=== PATIENT | female | born 2000 | race Caucasian/White ===

== ENCOUNTER 2020-06-08 09:14 | Emergency (ER) | payer BC, SELFPAY ==
[2020-06-08 09:25] VITALS: BP 114/60; PULSE 76; RESP 20; TEMP 36.7; O2SAT 100
--- NOTE | 2020-06-08 09:50 | ED.EYEPROB ---
HPI - Eye Problem General Chief complaint: Eye Problems Stated complaint: Swollen Eye Time Seen by Provider: 06/08/20 09:50 Source: patient and RN notes reviewed Mode of arrival: ambulatory Limitations: no limitations History of Present Illness HPI Narrative: 20-year-old female, 31 weeks , presents with concern for swollen left eyelid, skin redness around the eye. She denies vision changes, eye pain, crusty drainage, upper respiratory infection symptoms. Reports she has had similar issues with the eye in the past. chief complaint: other (Eyelid swelling) Related Data Home Medications Medication Instructions Recorded Confirmed multivit [id number] 1-dha cap PO 06/08/20 [PNV-DHA] ondansetron HCl 06/08/20 Allergies Allergy/AdvReac Type Severity Reaction Status Date / Time No Known Allergies Allergy Verified 06/08/20 09:45 Review of Systems Review of Systems: Narrative: CONSTITUTIONAL: Denies malaise, chills, sweats, or fever. EYES: Denies visual changes, redness, or discharge. Reports left eyelid swelling, skin excoriation around the eye ENT: Denies rhinorrhea, congestion, sinus pain, otalgia or sore throat. CARDIOVASCULAR: Denies chest pain, palpitations RESPIRATORY: Denies cough or dyspnea. SKIN: Reports irritated skin near the left eye All systems reviewed & are unremarkable except as noted in HPI and below PMFSH Comments At time of signature, agree with nursing past medical, surgical, social and family history. There is no relevant family history pertinent to the presenting complaint Exam Narrative: Exam Narrative: GENERAL: Well-appearing, well-nourished, and in no acute distress. HEAD: Normocephalic, atraumatic. EYES: PERRLA, conjunctivae clear, and EOMI. No nystagmus. Left lower eyelid swelling with mild excoriation to the skin of the outer corner of the eye, sclera and conjunctive is not injected ENT: Mucous membranes moist. NECK: Supple. CHEST: No respiratory distress. Speaks in full sentences. HEART: Regular rate and rhythm. SKIN: Warm, dry, no rash. NEURO: Alert and oriented x3. PSYCH: Normal mood and affect Course Course Emergency Course: Patient is aware of diagnosis, understands and agrees to treatment plan. Anticipatory guidance given. Patient agrees to follow-up as directed and is aware of reasons to seek care at the emergency department. Portions of this record may have been created with voice recognition software Vital Signs Vital signs: Vital Signs Temperature 98.1 F 06/08/20 09:25 Pulse Rate 76 06/08/20 09:25 Respiratory Rate 20 06/08/20 09:25 Blood Pressure 114/60 06/08/20 09:25 Pulse Oximetry 100 06/08/20 09:25 Temperature 98.1 F 06/08/20 09:25 Pulse Rate 76 06/08/20 09:25 Respiratory Rate 20 06/08/20 09:25 Blood Pressure 114/60 06/08/20 09:25 Pulse Oximetry 100 06/08/20 09:25 Reviewed. MDM - Eye Problem MDM Narrative Medical decision making narrative: Consideration of the following conditions may be warranted for the presenting problem, they are not final diagnoses: Bacterial conjunctivitis, allergic conjunctivitis, viral conjunctivitis, foreign body, blepharitis, chalazion, hordeolum, corneal abrasion. Exam findings show no acute concerns or changes; patient is non-toxic appearing and is in no distress. Patient is appropriate for outpatient treatment and follow-up. Critical Care Time Critical Care Time Critical Care Time: No Discharge Plan Discharge Clinical Impression: Blepharitis Qualifiers: Blepharitis type: unspecified type Laterality: left Eyelid: lower Qualified Code(s): H01.005 - Unspecified blepharitis left lower eyelid Patient Disposition: Home, Self-Care Condition: Stable Instructions: Blepharitis (ED) Additional Instructions: Use a warm or cool washcloth on your eye for comfort Use eyedrops as directed Practice good handwashing Avoid wearing eye make-up, use artificial tears as needed
== END 2020-06-08 10:05 | disposition home or self-care (01) ==
PROVIDERS: Emergency Provider Nurse Practitioner
DX: O90.89 Other complications of the puerperium, not elsewhere classified (principal); H01.005 Unspecified blepharitis left lower eyelid
CPT/HCPCS: 99213; G0463

== ENCOUNTER 2023-10-01 13:44 | Emergency (ER) | payer BC, SELFPAY ==
[2023-10-01 14:00] VITALS: BP 109/60; PULSE 69; RESP 16; TEMP 36.7; O2SAT 98
--- NOTE | 2023-10-01 14:04 | ED.EYEPROB ---
HPI - Eye Problem General Chief complaint: Eye Problems Stated complaint: Left Eye Problem Source: patient, RN notes reviewed and old records reviewed Mode of arrival: ambulatory Limitations: no limitations History of Present Illness HPI Narrative: 23-year-old female presents to urgent care with complaint of left eye redness and irritation for 1-2 days. Patient states this is recurring issue patient uses Polytrim eyedrops epistasis time is not helping. Patient does not have a current eye doctor. Patient does not wear contacts. MD chief complaint: eye redness Onset (ago): day(s) (1-2) Related Data Home Medications Medication Instructions Recorded Confirmed Nexplanon 10/01/23 Polytrim 10/01/23 Allergies Allergy/AdvReac Type Severity Reaction Status Date / Time No Known Allergies Allergy Verified 10/01/23 13:53 Review of Systems Constitutional: Constitutional: Reports no additional constitutional complaints Eyes: Eyes: Reports as per HPI, Denies blurry vision, Denies exophthalmos, Denies change in vision, Denies decreased night vision, Denies diplopia, Reports irritation, Denies loss of vision and Denies eye pain ENT: Reports system reviewed and no additional complaints, except as documented Cardiovascular: Cardiovascular: Reports no additional cardiovascular complaints Respiratory: Respiratory: Reports no additional respiratory complaints Neurologic: Reports system reviewed and no additional complaints, except as documented PMFSH Comments At the time of my signature, I reviewed and agree with the nursing past medical, surgical, social, and family history. There is no relevant family history pertinent to the patient complaint. Exam Const: General: cooperative, healthy appearing, no acute distress and well nourished Nutritional Appearance: well nourished Orientation/consciousness: patient oriented x3 Limitations: no limitations HENMT: Head: normal to inspection and normocephalic Ears: external ears normal, TM's normal bilaterally, mastoids normal and Abnormal EAC present Face/Nose/Sinus: normal facial exam Face and sinus: normal facial exam Mouth: Yes Normal oral and palatal mucosa present, Yes oropharynx normal and Yes moist mucous membranes Throat: posterior oropharynx normal, tonsils normal, uvula midline and no uvular edema Eyes: Visual Overton: normal visual overton by confrontation Alignment and Position: alignment normal Periorbital: periorbital findings normal Eyelids: eyelids normal Conjunctivae: normal conjunctivae ( redness) Sclera: sclerae normal Cornea: corneas normal Pupils: Equal, round and reactive pupils present Resp: Effort & Inspection: normal respiratory effort, able to speak in complete sentences, no audible wheezes, no cough, no respiratory distress and no retractions Auscultation: clear to auscultation bilaterally, no crackles, no rales, no rhonchi and no wheezes Cardio: Rate: regular rate Rhythm: regular rhythm Skin: General skin exam: normal color and no rashes or lesions noted Neuro: General: patient oriented x3 Cranial nerves: Yes Equal, round and reactive pupils present Psych: Appearance: grossly normal Course Course Emergency Course: Some parts of this dictation were generated by voice recognition software and may contain typographical and/or grammatical inaccuracies. Level of Care: Express Care Visit Vital Signs Vital signs: Vital Signs Temperature 98.1 F 10/01/23 14:00 Pulse Rate 69 10/01/23 14:00 Respiratory Rate 16 10/01/23 14:00 Blood Pressure 109/60 10/01/23 14:00 Pulse Oximetry 98 10/01/23 14:00 Oxygen Delivery Room Air 10/01/23 14:00 Temperature 98.1 F 10/01/23 14:00 Pulse Rate 69 10/01/23 14:00 Respiratory Rate 16 10/01/23 14:00 Blood Pressure 109/60 10/01/23 14:00 Pulse Oximetry 98 10/01/23 14:00 Oxygen Delivery Room Air 10/01/23 14:00 Reviewed MDM - Eye Problem MDM Narrative Medical de
== END 2023-10-01 14:13 | disposition home or self-care (01) ==
PROVIDERS: Emergency Provider Registered Nurse
DX: H10.9 Unspecified conjunctivitis (principal)
CPT/HCPCS: 99203; G0463

== ENCOUNTER 2024-10-06 15:45 | Emergency (ER) | payer BC, SELFPAY ==
--- NOTE | ~2024-10-06 | CT_ITS ---
EXAMINATION: CT brain wo con DATE: 10/06/2024 16:04 INDICATION: Headache TECHNIQUE: Computed tomography (CT) of the head was performed without intravenous contrast. Sagittal and coronal reconstructions were performed. The mA was adjusted according to patient size. Iterative reconstruction technique was employed. The dose-length product was 605.33 mGy-cm. COMPARISON: None FINDINGS: No acute intracranial hemorrhage, acute infarction or abnormal extra axial fluid collection. Ventricl es are normal and symmetric. No mass/mass effect. Prominent mucosal thickening in the bilateral maxil ward and anterior right ethmoid sinuses and with complete opacification of the right frontal sinus. M ild mucosal thickening the left frontoethmoidal recess. The orbits and mastoid air cells are normal. IMPRESSION: 1. No acute intracranial process. 2. Prominent sinus disease including complete opacification of the right frontal sinus. Reviewed, dictated and finalized at location A. [facility] [employer] IMPRESSION: 1. No acute intracranial process. 2. Prominent sinus disease including complete opacification of the right fronta l sinus.
[2024-10-06 15:47] VITALS: BP 134/78; PULSE 67; RESP 16; O2SAT 100
--- NOTE | 2024-10-06 15:47 | ED.HA ---
HPI - Headache General Chief Complaint: Headache Stated Complaint: headache after bending over Time Seen by Provider: 10/06/24 15:47 Focused HPI: This is a 24 year old female that presents to the ER for a headache. Reports it started after bending over to grab something at work. She has never had a headache like this before. Reports the pain is 10/10. Reports on the right sided headache. Reports some blurry vision. Reports nausea. Reports her arms are tingling and she feels lightheaded. Denies vomiting. GENERAL: Well-appearing, well-nourished, and in no acute distress. HEAD: Normocephalic, atraumatic. CHEST: Clear to auscultation. ?No respiratory distress. HEART: Regular rate and rhythm.? NEURO: ?Alert and oriented x3. Patient screened in triage and initial orders placed.? ?Additional care and disposition to be based upon?diagnostic testing and treatment. Related Data Home Medications ?Medication ?Instructions ?Recorded ?Confirmed ?Last Taken ?Type Nexplanon 10/01/23 Unknown History Polytrim 10/01/23 Unknown History Allergies Allergy/AdvReac Type Severity Reaction Status Date / Time No Known Allergies Allergy Verified 10/01/23 13:53 Course Vital Signs Vital signs: Vital Signs Pulse Rate 67 10/06/24 15:47 Respiratory Rate 16 10/06/24 15:47 Blood Pressure 134/78 10/06/24 15:47 Pulse Oximetry 100 10/06/24 15:47 Oxygen Delivery Room Air 10/06/24 15:47 Pulse Rate 67 10/06/24 15:47 Respiratory Rate 16 10/06/24 15:47 Blood Pressure 134/78 10/06/24 15:47 Pulse Oximetry 100 10/06/24 15:47 Oxygen Delivery Room Air 10/06/24 15:47 MDM - Headache MDM Narrative Medical decision making narrative: Patient left after initial screening exam and initial workup and before any further evaluation or management Differential Diagnosis Differential diagnosis: Likely migraine, tension headache, subarachnoid hemorrhage, headache and sinusitis Imaging Data Radiologist's impression: ITS Impressions Head CT 10/06/24 16:06 IMPRESSION: 1. No acute intracranial process. 2. Prominent sinus disease including complete opacification of the right frontal sinus. Discharge Plan Discharge Clinical Impression: Headache Qualifiers: Headache type: unspecified Headache chronicity pattern: acute headache Intractability: intractable Qualified Code(s): R51.9 - Headache, unspecified Patient Disposition: Elopement After Seen by Prov Condition: Guarded Prognosis Patient Language: Turkish Prescriptions: No Action Nexplanon Polytrim erythromycin 5 mg/gram (0.5 %) ointment 0.5 inch EACH EYE BID 7 Days Qty: 3.5 0RF Follow-up/Referrals: PHYSICIAN,RAILROAD PASSENGER AGENT [Primary Care Provider] -
== END 2024-10-06 18:34 | disposition left against medical advice (07) ==
LOC: ANHED 18:30
PROVIDERS: Emergency Provider Physician Assistant
DX: R51.9 Headache, unspecified (principal)
CPT/HCPCS: 70450; 99284

== ENCOUNTER 2025-04-25 08:02 | Emergency (ER) | payer BC, SELFPAY ==
--- NOTE | ~2025-04-25 | XR_ITS ---
Clinical Indication: Cough PA and lateral views of the chest: Comparison: None Findings: The lungs are clear, without evidence of focal consolidation or pleural effusion. Cardiome diastinal silhouette is within normal limits. Bones and soft tissues are unremarkable. Impression: Normal chest. Reviewed, dictated and finalized at location . Impression: Normal chest.
[2025-04-25 08:12] VITALS: BP 108/61; PULSE 68; RESP 16; TEMP 37.2; O2SAT 100
[2025-04-25 08:44] LABS: BEDSIDEPREGUCG Negative (Negative)
--- NOTE | 2025-04-25 09:18 | ED.GENADULT ---
HPI - General Adult General Chief complaint: Upper Respiratory Infection Stated complaint: allergies, sore throat Source: patient Mode of arrival: ambulatory Limitations: no limitations History of Present Illness HPI narrative: Patient presents for evaluation of sinus symptoms since yesterday. She reports sinus congestion, thick mucopurulent discharge from the nares. She is unsure whether she is experiencing fever but denies any chills, nausea, vomiting, diarrhea. She also reports a cough and pleuritic chest pain. Two nights ago she use cocaine. She smokes a few cigarettes daily, and uses marijuana. No recent sick contacts to her knowledge. She has not been taking any medications to assist with her symptoms. Related Data Home Medications ?Medication ?Instructions ?Recorded ?Confirmed ?Last Taken ?Type Nexplanon 10/01/23 Unknown History Allergies Allergy/AdvReac Type Severity Reaction Status Date / Time No Known Allergies Allergy Verified 10/01/23 13:53 Review of Systems Review of Systems: CONSTITUTIONAL: Denies fever, chills, or sweats. EYES: Denies visual changes, redness, or discharge. ENT: Reports sinus congestion, and thick mucopurulent discharge from the nares. Denies otalgia CARDIOVASCULAR: Denies chest pain, palpitations, or edema. RESPIRATORY: Reports cough. Denies dyspnea. GASTROINTESTINAL: Denies abdominal pain, nausea, vomiting, or diarrhea. GENITOURINARY: Denies dysuria or hematuria. SKIN: Denies rash or itching. MUSCULOSKELETAL: Denies back pain, joint pain, or myalgia. NEUROLOGIC: Denies headache, numbness, dizziness, or weakness. PSYCHIATRIC: Denies anxiety or depression. [facility] Past Medical History Medical History Depression Surgical History Surgical History No pertinent past surgical history Family History Family History Mother Family history non-contributory Social History Social History Smoking packs per day: 0.25 Smoking cigarettes per day: 5.0 Smoking status: Current every day smoker Tobacco type: cigarettes and e-cigarettes/vaping Alcohol intake: current Alcohol use details: social Substance use: current Substance use type: marijuana and crack/cocaine Living arrangements: with family Gender identity (if verbalized by the patient): Female Spiritual care concerns: No Exam Narrative: GENERAL: Well-appearing, well-nourished, and in no acute distress. HEAD: Normocephalic, atraumatic. EYES: PERRLA and EOMI. ENT: Nares clear, no rhinorrhea or epistaxis. Mucous membranes moist. Oropharynx without tonsillar hypertrophy exudate or other lesions. Bilateral TMs pearly avalos nonbulging NECK: Supple. No adenopathy or masses. No carotid bruits or JVD CHEST: Clear to auscultation. No respiratory distress. No wheezes rales or rhonchi HEART: Regular rate and rhythm. No murmur heard. Normal peripheral pulses. ABDOMEN: Soft, nontender, nondistended, normal active bowel sounds. EXTREMITIES: Normal range of motion. No edema. SKIN: Warm, dry, no rash. NEURO: No focal deficits. Alert and oriented x3. PSYCH: Normal mood and affect. Course Course Emergency Course: This is a 25 year old female who presented for evaluation of sinus symptoms. Chest x-ray normal. She meets criteria for ABRS based upon mucopurulent nature for discharge. Will discharge with Augmentin. Follow-up with primary provider. Advised to use illicit drugs. Go to the emergency department for worsening symptoms. Patient in agreement with care Level of Care: Express Care Visit Vital Signs Vital signs: Vital Signs Temperature 37.2 C 04/25/25 08:12 Pulse Rate 68 04/25/25 08:12 Respiratory Rate 16 04/25/25 08:12 Blood Pressure 108/61 04/25/25 08:12 Pulse Oximetry 100 04/25/25 08:12 Oxygen Delivery Room Air 04/25/25 08:12 Temperature 37.2 C 04/25/25 08:12 Pulse Rate 68 04/25/25 08:12 Respiratory Rate 16 04/25/25 08:12 Blood Pressure 108/61 04/25/25 08:12 Pulse Oximetry 100 04/25/25 08:12 Oxygen Delivery Room Air 04/25/25 08:12 Medical Decision Making Vital Signs Vital Signs: Vital Signs Temperature 37.2 C 04/25/25 08:12 Pulse Rate 68 04/25/25 08:12 Respiratory Rate 16 04/25/25 08:12 Blood Pressure 108/61 04/25/25 08:12 Pulse Oximetry 100 04/25/25 08:12 Oxygen Delivery Room Air 04/25/25 08:12 Temperature 37.2 C 04/25/25 08:12 Pulse Rate 68 04/25/25 08:12 Respiratory Rate 16 04/25/25 08:12 Blood Pressure 108/61 04/25/25 08:12 Pulse Oximetry 100 04/25/25 08:12 Oxygen Delivery Room Air 04/25/25 08:12 Lab Data Labs: Lab Results 04/25/25 Range/Units 08:28 POC Urine HCG, Qual Negative (Negative) Imaging Data Radiologist's impression: Clinical Indication: Cough PA and lateral views of the chest: Comparison: None Findings: The lungs are clear, without evidence of focal consolidation or pleural effusion. Cardiomediastinal silhouette is within normal limits. Bones and soft tissues are unremarkable. Impression: Normal chest. Discharge Plan Discharge Clinical Impression: Acute bacterial sinusitis Patient Disposition: Home Condition: Stable Instructions: Antibiotic Form, Sinusitis (ED) Patient Language: Bahraini Prescriptions: New amoxicillin-pot clavulanate 875-125 mg tablet 1 tablet PO Q12H Qty: 20 0RF No Action Nexplanon Time of Disposition: 08:56
== END 2025-04-25 09:02 | disposition home or self-care (01) ==
PROVIDERS: Emergency Provider Nurse Practitioner
DX: J01.90 Acute sinusitis, unspecified (principal); F17.210 Nicotine dependence, cigarettes, uncomplicated; F17.290 Nicotine dependence, other tobacco product, uncomplicated; F12.90 Cannabis use, unspecified, uncomplicated; F14.90 Cocaine use, unspecified, uncomplicated
CPT/HCPCS: 71046; 81025; 99213; G0463